=== PATIENT | female | born 1970 | race Caucasian/White ===

== ENCOUNTER 2017-12-02 06:49 | Day surgery (SDC) | payer BC, SELFPAY ==
[2017-12-02] VITALS (7 sets, daily range): BP systolic 106–130; BP diastolic 74–95; PULSE 68–83; RESP 16–18; TEMP 36.1–36.8; O2SAT 97–100; BMI 34.2
[2017-12-02 07:43] LABS: Hematocrit 41.3 % (37-47); Hemoglobin 13.7 g/dl (12.0-15.0); Mean Corp Hgb Conc 33.2 g/gl (32-36); Mean Corpuscular Hgb 28.2 pg (27.0-32.0); Mean Platelet Vol. 10.5 fl (6.2-12.0); Platelet Count 207 K/mm3 (150-450); RBC Distribution Width CV 13.3 % (11.6-14.6); RBC Distribution Width SD 41.2 fl (35.1-43.9); Red Blood Count 4.86 M/mm3 (4.2-5.4); White Blood Count 7.7 K/mm3 (4.4-11.0)
[2017-12-02 07:46] LABS: Scan Indicated on CBC? Y/N NO
--- NOTE | 2017-12-02 09:03 | PCM.OP.BLANK ---
Problem List (1) Abnormal uterine bleeding (AUB) Status: Acute Operative Report Date of Procedure: 12/02/17 Surgeon: Dr. 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 Bladder was drained prior to the start of the procedure with 100cc urine- At this time the weighted speculum was placed the posterior fornix of the vagina then a single-tooth tenaculum was used to grasp the anterior lip of the cervix. At this time the uterus was sounded to approximately 7 cm the endocervical canal sounded to 3cm. Next cervix was dilated in incremental fashion. Once adequate dilatation was achieved the hysteroscope was inserted using normal saline as distention medium. On hysteroscopy no abnormalities appreciated- appeared to have narrow cavity with moderate amount of endometrial tissue. At this time the Andreina device was opened. The Andreina was set at 4cm. The device was activated. Prior to activation the field test was performed and cavity was intact. The device was then fired and activated for 120 seconds. Once the 120 seconds was completed the device was removed intact and the tenaculum was removed. Good hemostasis was appreciated. Weighted speculum was removed. Vaginal sweep was performed is negative. There were no complications. Anticipated normal postoperative course for this patient. Instrument and lap count were correct ?2. vaginal sweep negative.
--- NOTE | 2017-12-02 09:06 | PCM.DC.D&C ---
Discharge Diet: No Restrictions Discharge Activity: Return to Normal Activity, May Shower, May Take a Tub Bath - in 2 weeks. Allergies/Adverse Reactions: Allergies No Known Allergies Allergy (Verified 11/25/17 10:22) Medications to take at Discharge Hydrochlorothiazide [Hctz] 25 mg PO DAILY 11/25/17 Lisinopril [Prinivil] 10 mg PO DAILY 11/25/17 Multivitamin [Multiple Vitamins] 1 each PO DAILY 11/25/17 Albuterol IH (ProAir) [Proair Hfa (SP)Vent Pts] 1 - 2 puff INHALATION Q4H PRN PRN 12/02/17 Primary Care Physician: Josesito Maldonado MD [Primary Care Provider] - Test Results: Test results from this visit will be discussed in further detail at your follow-up appointment, if applicable. Please Follow Up With: Mary Carreno MD When: as scheduled
[2017-12-02] MEDS: HYDROcodone Bitartrate/Apap 5/325 Tablet PO (10:12)
== END 2017-12-02 10:37 | disposition home or self-care (01) ==
LOC: SDC 06:50 → AC 06:52
PROVIDERS: Family Provider Family Medicine; PCP Family Medicine; Visit Provider Obstetrics & Gynecology
PROC: 0U5B8ZZ Destruction of Endometrium, Via Natural or Artificial Opening Endoscopic (ICD-10-PCS; CPT 58558; principal; 2017-12-02 08:00)
DX: N93.9 Abnormal uterine and vaginal bleeding, unspecified (principal); I10 Essential (primary) hypertension; Z79.899 Other long term (current) drug therapy; Z87.891 Personal history of nicotine dependence; E66.9 Obesity, unspecified; Z68.34 Body mass index [BMI] 34.0-34.9, adult; Z71.3 Dietary counseling and surveillance
CPT/HCPCS: 58563; 36415; 85027; J7120; J2405

== ENCOUNTER 2020-03-02 22:08 | Emergency (ER) | payer BC, SELFPAY ==
[2020-03-02 22:08] VITALS: BP 160/104; PULSE 122; RESP 18; TEMP 36.2; O2SAT 98; BMI 35.0
--- NOTE | 2020-03-02 22:21 | ED.DCSUM_ITS ---
- ER Visit Summary Date of Service: 03/02/20 Chief Complaint: Cough, weakness, decreased appetite and mild shortness of breath. History of Present Illness: The patient is a 49 F past medical history of hypertension. Prior C-sections. Patient states she is had a 5-day history of cough, body aches fever that has since resolved mild nausea but no vomiting or diarrhea. And generalized weakness and mild shortness of breath. She denies any history of DVT or PE. No cardiac history. Her was recently tested for Covid and his test was negative. She denies any leg pain, swelling or hemoptysis. No recent travel, surgery or immobilization. Physical Examination: Middle-aged female no acute distress vital signs are stable. Her pulse ox is 98% on room air no signs of hypoxia. HEENT exam unremarkable. Moist mucous membranes. Posterior pharynx normal. No trouble swallowing. Neck nontender no lymphadenopathy. No JVD. Lungs clear to auscultation bilaterally. Heart regular rhythm rate about 105 no murmur. Abdomen soft nontender. Patient is moving all 4 extremities. Neurovascularly intact. Calves nontender without edema. Back nontender. Neurologically she is awake and alert with no focal motor deficits. Test Results: Rapid Covid antigen is positive. Portable 1 view chest x-ray interpreted by myself shows what could be a right lower lobe early infiltrate consistent with Covid. Cardiac silhouette mediastinum and bony structures are unremarkable. Radiologist also read the film and agrees. Emergency Department Course and Treatment: Clinically the patient has COVID-19. Treatment Plan: Repeat exam no change. Patient be started on oral Decadron first dose given in the ER. Decadron daily 6 mg for 5 more days. Follow-up with your doctor if feeling worse or return to the emergency department. Quarantine. Disposition: Discharge Impression: Acute Covid pneumonitis This note was generated with [employer] dictation software. It may contain incorrect words, spelling, and punctuation that were not noted in review of the chart prior to signing ED Disposition - Plan for ED Patient: Referrals: Josesito Maldonado MD [Primary Care Provider] -
--- NOTE | 2020-03-02 22:35 | RAD_ITS ---
STUDY: X-RAY CHEST REASON FOR EXAM: Female, 49 years old. COMPLAINS OF SOB, COUGH, BODY ACHES, SORE THROAT, FATIGUE FOR PAST 5 DAYS. TECHNIQUE: Single AP portable view of the chest. COMPARISON: None. FINDINGS: There is mild airspace disease overlying the right lower lobe. There is no demonstrated pleural abnormality. Normal size heart. Normal mediastinum and micah. Normal visualized pulmonary arteries. Normal visualized aortic arch and descending thoracic aorta. Normal visualized thoracic spine. Normal visualized ribs, clavicles, and shoulders. There is no demonstrated abnormality of the visualized soft tissue structures of the upper abdomen. RAD/Chest 1 View (Portable) IMPRESSION: Findings concerning for early infiltrate overlying the right lower lobe, clinically correlate. Electronically Signed: Harman Robertson DO at 22:52 EST , Service support ,
--- NOTE | 2020-03-02 23:12 | ED.DEP ---
ED Disposition - Plan for ED Patient: Instructions: Coronavirus Disease 2019 (COVID-19): Overview Prescriptions: Dexamethasone [Decadron] 6 mg PO DAILY 5 Days tab Prescription Printed Referrals: Josesito Maldonado MD [Primary Care Provider] - 1 Week if not improving Additional Instructions: Your Covid test was positive. Your chest x-ray had early changes consistent with Covid. You will be started on Decadron which is a steroid 1 pill a day for 5 more days. This should decrease inflammation and help with your breathing. Return emergency department if you are feeling a lot worse specifically if you are a lot more short of breath. Otherwise follow-up with your doctor if not improving. Plenty of fluids and rest. Tylenol for fever and body aches.
[2020-03-02] MEDS: dexAMETHasone 4 MG Tablet 6 MG PO (23:28)
[2020-03-02 23:29] VITALS: BP 139/96; PULSE 100; RESP 18; O2SAT 96
== END 2020-03-03 00:02 | disposition home or self-care (01) ==
LOC: ED 22:50
PROVIDERS: Emergency Provider Emergency Medicine; PCP Family Medicine
DX: U07.1 COVID-19 (principal); J12.89 Other viral pneumonia; I10 Essential (primary) hypertension; Z79.899 Other long term (current) drug therapy
CPT/HCPCS: 71045; 87426; 99283

== ENCOUNTER 2023-01-05 16:14 | Emergency (ER) | payer BC, SELFPAY ==
[2023-01-05 16:16] VITALS: BP 177/113; PULSE 92; RESP 16; TEMP 36.1; O2SAT 100; BMI 30.5
[2023-01-05 17:30] VITALS: BP 156/107; PULSE 74; RESP 18; O2SAT 97
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
[2023-01-05 19:47] VITALS: BP 182/100; PULSE 71; RESP 15; O2SAT 100
[2023-01-05] MEDS: HYDROcodone Bitartrate/Apap 5/325 Tablet PO (20:15)
[2023-01-05 20:17] VITALS: BP 182/100; PULSE 71; RESP 15; O2SAT 100
== END 2023-01-05 20:19 | disposition home or self-care (01) ==
PROVIDERS: Emergency Provider Emergency Medicine; PCP Family Medicine; Visit Provider Emergency Medicine
DX: S20.20XA Contusion of thorax, unspecified, initial encounter (principal); Z79.899 Other long term (current) drug therapy; V49.40XA Driver injured in collision with unspecified motor vehicles in traffic accident, initial encounter
CPT/HCPCS: 70450; 71046; 72125; 99282

== ENCOUNTER 2023-02-20 07:42 | Emergency (ER) | payer BC, SELFPAY ==
[2023-02-20 07:42] VITALS: BP 154/93; PULSE 93; RESP 18; TEMP 36.4; O2SAT 100; BMI 30.8
--- NOTE | 2023-02-20 07:51 | EDS_ITS ---
HPI History of Present Illness Chief Complaint: Nosebleed Informant: patient Narrative Narrative: Patient presents with right-sided nosebleed. She states she started this couple hours ago. She was sleeping. She does not know if she hit her bumped or scraped her nose. She has not been congested or blowing her nose excessively recently. She is not on any blood thinners. She does not take aspirin or nonsteroidals. She states she has had nosebleeds off and on but they are not a regular part of her life. She states the bleeding has been completely off the right side only. No other areas of bleeding or bruising recently. She does not feel lightheaded. [facility] Medical History Chronic back pain Home Medications hydrochlorothiazide 25 mg tablet 25 mg PO DAILY BP 11/25/17 [History Last Taken Unknown] gabapentin 100 mg capsule mg 01/05/23 [History Last Taken Unknown] hydrocodone-acetaminophen 5-325mg 5mg-325mg 1 tab PO Q6H PRN PRN Pain 3 days #10 TABLETS 01/05/23 [Rx Last Taken Unknown] losartan 100 mg tablet mg 01/05/23 [History Last Taken Unknown] sertraline 100 mg tablet mg 01/05/23 [History Last Taken Unknown] Allergy/AdvReac Type Severity Reaction Status Date / Time No Known Allergies Allergy Verified 02/20/23 07:44 Social History Smoking Status: Never smoker [facility] ED Constitutional Constitutional ED: Denies chills or fever(s) Eyes Eyes: Denies change in vision ENT ENT ED: Reports other Details: See history of present illness. Cardiovascular Cardiovascular: Denies chest pain, palpitations or racing heartbeat Respiratory/Chest Respiratory/Chest: Denies cough or dyspnea Gastrointestinal Gastrointestinal: Denies abdominal pain, nausea or vomiting Genitourinary Genitourinary ED: Denies hematuria Musculoskeletal Musculoskeletal: Denies arthralgias Integumentary Denies rash Hematologic/Lymphatic Hematologic/Lymphatic: Denies easy bleeding or easy bruising Allergic/Immunologic Allergic/Immunologic ED: Denies urticaria EXAM Physical Exam Narrative Exam Narrative: General: Patient awake alert good informant. She has a nasal clamp on the front of her nose and some tissues held there. No active bleeding coming out right now. HEENT: Clamp and tissues as above. No facial tenderness. Oropharynx is normal. I do not see any posterior pharyngeal clot at this time. No intraoral petechiae. Eyes: No conjunctival pallor is noted. Neck is supple. Heart is regular. I hear no murmur. Lungs are clear. Saturations are normal 100% on room air showing no hypoxia. Abdomen soft nontender and has normal bowel sounds. Extremities show no pallor. No tenderness. Skin: No diaphoresis. No pallor. No abnormal bruising. I see no petechiae. Const Vital Signs: 02/20/23 07:42 Temperature 97.6 F L Temperature Source Temporal Pulse Rate 93 Respiratory Rate 18 Blood Pressure 154/93 H Blood Pressure Mean 113 Pulse Ox 100 Oxygen Delivery Method Room Air MDM MDM MDM Narrative Medical decision making narrative: Procedure: Management of epistaxis: Clamp was removed from the nose. We sprayed 2 sprays of aspirin in each nostril. We let this rest. I went back. Left is completely clear. Right has small abrasion in the anterior Kiesselbach's plexus. But the vessels around it are not distended or tortuous. I do not think cauterizing this area would be the best. I did then use spray thrombin in both naris. We have let the patient rest for over an hour. She has gotten up walked around. There is no bleeding at all. We did discuss the option of placing packing but she would prefer to try to avoid this. I explained that if it starts bleeding again she may need to return and she may need further procedures. She is comfortable with this plan. Discharge Plan Triage Chief Complaint: Nosebleed ED Provider: Srinath Hill Dx/Rx/DC Orders Clinical Impression: Acute anterior epistaxis Instructions: ED Epistaxis (Adult) Prescriptions: No Action hydrochlorothiazide 25 MG tablet 25 mg PO DAILY sertraline 100 mg tablet Patient Comments: Take ONE-HALF tab once a day orally for one week then 1 (ONE) tab once a day gabapentin 100 mg capsule Patient Comments: Take 2 capsules by mouth three times daily as needed for up to 30 days. losartan 100 mg tablet Patient Comments: Take 1 tablet by mouth once daily. hydrocodone-acetaminophen 5-325 mg tablet 1 tab PO Q6H PRN PRN (Reason: Pain) 3 Days Qty: 10 0RF Primary Care Provider: Josesito Maldonado Referrals: Bogdan Jeter MD [Med Staff - Active Staff] - 3-5 Days Josesito Maldonado MD [Primary Care Provider] - Activity Restrictions/Additional Instructions: And cool-mist humidifier to the room that you are staying in. Avoid pushing, pulling, bending, lifting and avoid hot foods and beverages for several days. Avoid blowing scratching or bumping nose. Disposition Disposition: Home, Self Care
[2023-02-20] MEDS: Oxymetazoline 0.05% 1 SPRAY SPRAY.BTL 2 SPRAY NASAL (08:03)
[2023-02-20] MEDS: Thrombin 5,000 IU Kit (PSA) 5,000 IU Vial 5000 IU TOPICAL (08:06)
[2023-02-20 10:27] VITALS: BP 136/87; PULSE 71; RESP 18; O2SAT 99
== END 2023-02-20 10:28 | disposition home or self-care (01) ==
PROVIDERS: Emergency Provider Emergency Medicine; PCP Family Medicine; Visit Provider Emergency Medicine
DX: R04.0 Epistaxis (principal)
CPT/HCPCS: 30901; 99282

== ENCOUNTER 2023-10-18 00:52 | Emergency (ER) | payer BC, SELFPAY ==
[2023-10-18 00:53] VITALS: BP 151/89; PULSE 105; RESP 16; TEMP 36.9; O2SAT 99; BMI 31.4
[2023-10-18 01:28] LABS: Mucous, Urine 0 SEEN /hpf (<or=2+); Red Blood Cells-Urine 0 SEEN /hpf (0-5); Squamous Epithelial Cells - UA 0 SEEN /hpf (5-10); White Blood Cells 0 SEEN /hpf (0-5)
[2023-10-18 01:29] LABS: Absolute Lymphocyte Count 1.37 X10^3/uL (0.83-4.51); Absolute Neutrophil Count 9.9 X10^3/uL (2.0-7.7); Basophil# 0.04 X10^3/uL; Basophil% 0.3 % (0-1); Eosinophil# 0.04 X10^3/uL; Eosinophils% 0.3 % (0-5); Hematocrit 41.9 % (37-47); Hemoglobin 14.3 g/dL (12.0-15.0); Lymphocyte # 1.37 X10^3/ul (0.83-4.51); Lymphocyte % 11.2 % (19-41); Mean Corp Hgb Conc 34.1 g/dL (32-36); Mean Corpuscular Hgb 28.9 pg (27.0-32.0); Mean Corpuscular Volume 84.8 fL (81-99); Mean Platelet Vol. 11.1 fl (6.2-12.0); Monocyte# 0.81 X10^3/uL; Monocyte% 6.6 % (0-10); NRBC Flagged by Analyzer 0 % (0-5); Neutrophil # 9.93 X10^3/uL (2.7-7.7); Neutrophil % 81.4 % (47-70); Platelet Count 210 K/mm3 (150-450); RBC Distribution Width CV 12.8 % (11.6-14.6); RBC Distribution Width SD 39.5 fl (35.1-43.9); Red Blood Count 4.94 M/mm3 (4.2-5.4); White Blood Count 12.2 K/mm3 (4.4-11.0)
[2023-10-18 01:34] LABS: Color, Urine Yellow (Yellow); Glucose, Dipstick Normal (Normal); Ketone-Dipstick Negative (Negative); Leukocyte Esterase-Dipstick Negative /ul (Negative); Nitrite-Dipstick Negative (Negative); Occult Blood-Urine Negative /ul (Negative); Protein-Dipstick 30 mg/dl (Negative); Specific Gravity, Urine 1.025 (1.002-1.030); Urine Bilirubin Dipstick Negative (Negative); Urine Clarity Clear (Clear); Urine Urobilinogen Normal (Normal)
[2023-10-18 01:43] LABS: Bacteria 1+ /hpf (None Seen)
[2023-10-18 01:46] LABS: Anion Gap 7 (5-15); BUN 14 mg/dL (7-18); BUN/Creat Ratio 16.6 RATIO (10-20); Calcium,Total 9.2 mg/dL (8.5-10.1); Chloride 102 mmol/L (98-107); Creatinine, Serum 0.84 mg/dL (0.55-1.02); EST Glomerular Filtration Rate 74 mL/min (>60); Est Glom Filt Rate - Afr Amer 90 mL/min (>60); Estimated Creatinine Clearance 65.25 ml/min; Glucose 112 mg/dL (74-106); Potassium 3.3 mmol/L (3.5-5.1); Sodium Level 137 mmol/L (136-145)
--- NOTE | 2023-10-18 02:32 | CT_ITS ---
We are attempting to reach an attending provider to discuss findings. An addendum with communication details will be sent when the communication is complete. EXAM: CT ABDOMEN AND PELVIS WITHOUT INTRAVENOUS CONTRAST CLINICAL INDICATION: Abdominal pain TECHNIQUE: Helically acquired images were obtained of the abdomen and pelvis without intravenous contrast. This CT exam was performed using one or more of the following dose reduction techniques: automated exposure control, adjustment of the mA and/or kV according to patient size, and/or use of iterative reconstruction technique. RADIATION DOSE: CTDIvol = 9.95 mGy, DLP = 452.35 mGy-cm. COMPARISON: August 29, 2009 FINDINGS: LOWER THORAX: Unremarkable. Lung bases are clear. No cardiomegaly. No significant pericardial effusion. ABDOMEN: LIVER: Unremarkable. Homogeneous. GALLBLADDER AND BILE DUCTS: Unremarkable. No calcified gallstones. No gallbladder distention or wall edema. No intra- or extrahepatic biliary ductal dilation. PANCREAS: Unremarkable. No focal cystic mass. SPLEEN: Unremarkable. Normal size without focal cystic or solid mass. ADRENALS: Unremarkable. No nodules. KIDNEYS AND URETERS: Unremarkable. Normal renal size and position. No hydronephrosis. STOMACH AND BOWEL: Minimal gas and fluid in the stomach. Mild gas and fluid in right colon, mild scattered gas descending colon, almost collapsed segments of rectosigmoid. Maximum small bowel caliber roughly 2.2 cm. PELVIS: APPENDIX: Right lobe of liver is 17.6 cm, upper normal, it was 60.8 cm on prior exam. Small normal appendix suspected on coronal images. BLADDER: Unremarkable. REPRODUCTIVE: Unremarkable as visualized. No mass. ABDOMEN and PELVIS: INTRAPERITONEAL SPACE: Trace fluid deep in the right pelvis. BONES/JOINTS: Unremarkable. No suspicious lytic or blastic abnormality. SOFT TISSUES: There is mild hazy apparent edema in the root of the mesentery and extending adjacent to multiple mildly thick-walled mid small bowel loops. No discrete abdominal or pelvic wall hernia. VASCULATURE: Slight aortoiliac atherosclerotic calcification. No aneurysm or evidence of dissection. LYMPH NODES: Multiple visible mesenteric lymph nodes, several were present on prior exam. CT/Abdomen/Pelvis without Cont IMPRESSION: 1. Fairly large zone of new hazy tissue stranding in the small bowel mesentery, most pronounced in the central and lower abdomen. Numerous small mesenteric lymph nodes, with some mildly larger or more apparent lymph nodes in the lower abdomen mesentery in the zone of maximum soft tissue stranding. 2. No discrete mass. 3. Slight fluid in the right pelvis. 4. Mildly thick-walled appearance of multiple small bowel loops. 5. Consider CTA with delayed imaging if there is clinical concern for mesenteric ischemia due to arterial or venous occlusion. 6. Correlate with evidence of enteritis. Electronically Signed: Winnie Jarrett MD at 3:36 EDT ,
--- NOTE | 2023-10-18 02:33 | EDS_ITS ---
HPI History of Present Illness Chief Complaint: Flank Pain Informant: patient Onset/Context/Timing Onset: Today Context: Gradual Onset Timing: Continuous Quality: Aching, cramping Location: Left flank Worsened by: Nothing Relieved by: Nothing Narrative Narrative: Patient presents with flank pain that began today. Patient states her pain is mainly over the left flank area. Patient describes the pain as aching and cramping. Patient states it has been constant. Patient states it is gradually gotten worse. Patient states nothing makes it better and nothing makes it worse. Patient admits to some nausea but denies any vomiting. Patient denies any dysuria or hematuria. Patient also complains of pain over the epigastric area which radiates into her upper abdomen under her ribs bilaterally. Patient admits to some pain in her back. Patient also admits to headache and neck pain. [facility] Medical History Chronic back pain Home Medications ?Medication ?Instructions ?Recorded ?Last Taken ?Type hydrochlorothiazide 25 mg tablet 25 mg PO DAILY BP 11/25/17 Unknown History gabapentin 100 mg capsule 100 mg PO TID 01/05/23 Unknown History losartan 100 mg tablet 100 mg PO DAILY 01/05/23 Unknown History sertraline 100 mg tablet 100 mg PO DAILY 01/05/23 Unknown History ciprofloxacin HCl 500 mg tablet 500 mg PO BID #20 TABLETS 10/18/23 Unknown Rx conj estrogen-medroxyprogesterone 1 tab PO DAILY 10/18/23 Unknown History 0.3 mg-1.5 mg tablet (Prempro) estradiol 1 mg tablet 1 mg PO DAILY 10/18/23 Unknown History hydrocodone-acetaminophen 5-325mg 1 tab PO Q6H PRN PRN Pain 3 days 10/18/23 Unknown Rx 5mg-325mg #10 TABLETS metronidazole 500 mg tablet 500 mg PO Q6H #40 tabs 10/18/23 Unknown Rx Allergy/AdvReac Type Severity Reaction Status Date / Time No Known Allergies Allergy Verified 02/20/23 07:44 Surgical History (Updated 10/18/23 @ 02:[address] Joe Ramirez, ) Hx of section Social History Smoking Status: Never smoker ROS ROS ED Constitutional Constitutional ED: Denies chills or fever(s) Eyes Eyes: Denies blurry vision or change in vision ENT ENT ED: Denies rhinorrhea or sore throat Cardiovascular Cardiovascular: Denies chest pain or palpitations Respiratory/Chest Respiratory/Chest: Denies cough or dyspnea Gastrointestinal Gastrointestinal: Reports abdominal pain and nausea; Denies vomiting Genitourinary Genitourinary ED: Denies dysuria or hematuria Musculoskeletal Musculoskeletal: Reports back pain and neck pain Integumentary Denies abscess or rash Neurologic Neurologic: Reports headache(s); Denies weakness Allergic/Immunologic Allergic/Immunologic ED: Denies mouth swelling or urticaria EXAM Physical Exam Const Vital Signs: 10/18/23 00:53 10/18/23 03:00 10/18/23 03:53 Temperature 98.5 F Temperature Source Oral Pulse Rate 105 H 87 97 Respiratory Rate 16 18 18 Blood Pressure 151/89 H 120/75 163/85 H Blood Pressure Mean 109 90 111 Pulse Ox 99 96 97 Oxygen Delivery Method Room Air Room Air Positive well nourished and well developed General Appearance ED: well developed and NAD HEENT Reports moist mucous membranes Neck supple and no JVD Resp normal respiratory effort and clear to auscultation bilaterally Cardio regular rate and regular rhythm GI non-distended Palpation: soft and tender epigastric, LUQ and RUQ; Negative for guarding or rebound tenderness present Back/Spine General Back: CVA tenderness left Extremity normal to inspection General Extremety ED: Negative for edema or tenderness General Extremity: Negative for edema Neuro oriented x3, CN's II-XII intact bilaterally and no sensory deficits noted Sensorium / Orientation: alert Motor Exam: strength 5/5 throughout Psych mental status grossly normal MDM MDM MDM Narrative Medical decision making narrative: Differential diagnosis includes ureteral calculus, pyelonephritis, pancreatitis, cholecystitis, cholelithiasis, colitis, and gastroenteritis. CBC will be obtained to assess for leukocytosis and anemia. Basic metabolic profile will be obtained to assess for electrolyte abnormality and renal function. Hepatic profile will be obtained to assess for hepatic function. Lipase will be obtained to assess for pancreatitis. Urinalysis will be obtained to assess for urinary tract infection and hematuria. CT scan of the abdomen pelvis will be obtained to assess for ureteral calculus, pyelonephritis, and pancreatitis. Lactate will be obtained to assess for bowel ischemia. Lab Data Attestation: I reviewed the patient's lab results. Lab results narrative: CBC was reviewed. There is a mild leukocytosis of 12.2. Remainder is within normal limits. Basic metabolic profile was reviewed. Potassium was slightly low at 3.3. Glucose was slightly elevated at 112. Urinalysis was reviewed. There is no evidence of urinary tract infection or hematuria. Lactic acid was reviewed and was normal at 0.8. Labs: Laboratory Results - last 24 hr 10/18/23 10/18/23 01:20 04:50 WBC 12.2 H RBC 4.94 Hgb 14.3 Hct 41.9 MCV 84.8 MCH 28.9 MCHC 34.1 RDW Std Deviation 39.5 RDW Coeff of Ayah 12.8 Plt Count 210 MPV 11.1 Immature Gran % (Auto) 0.200 Neut % (Auto) 81.4 H Lymph % (Auto) 11.2 L Cavalier % (Auto) 6.6 Eos % (Auto) 0.3 Baso % (Auto) 0.3 Absolute Neuts (auto) 9.9 H Absolute Lymphs (auto) 1.37 Nucleated RBC % 0 Sodium 137 Potassium 3.3 L Chloride 102 Carbon Dioxide 28.0 Anion Gap 7 BUN 14 Creatinine 0.84 Estim Creat Clear Calc 65.25 Est GFR (MDRD) Af Amer 90 Est GFR (MDRD) Non-Af 74 BUN/Creatinine Ratio 16.6 Glucose 112 H Lactic Acid 0.8 Calcium 9.2 Total Bilirubin 0.30 Direct Bilirubin 0.06 AST 15 ALT 22 Alkaline Phosphatase 87 Total Protein 7.3 Albumin 3.5 Globulin 3.8 Lipase 53 Urine Color Yellow Urine Clarity Clear Urine pH 6.0 Ur Specific [place] 1.025 Urine Protein 30 H Urine Glucose (UA) Normal Urine Ketones Negative Urine Occult Blood Negative Urine Nitrite Negative Urine Bilirubin Negative Urine Urobilinogen Normal Ur Leukocyte Esterase Negative Urine RBC 0 SEEN Urine WBC 0 SEEN Ur Squamous Epith Cells 0 SEEN Urine Bacteria 1+ Urine Mucus 0 SEEN Radiography Diagnostic Testing: Clinical Impression(s) from Imaging Studies Abdomen/Pelvis CT 10/18/23 02:32 IMPRESSION: 1. Fairly large zone of new hazy tissue stranding in the small bowel mesentery, most pronounced in the central and lower abdomen. Numerous small mesenteric lymph nodes, with some mildly larger or more apparent lymph nodes in the lower abdomen mesentery in the zone of maximum soft tissue stranding. 2. No discrete mass. 3. Slight fluid in the right pelvis. 4. Mildly thick-walled appearance of multiple small bowel loops. 5. Consider CTA with delayed imaging if there is clinical concern for mesenteric ischemia due to arterial or venous occlusion. 6. Correlate with evidence of enteritis. Electronically Signed: Winnie Jarrett MD at 3:36 EDT Reading Location ID and State: [facility] / [place] Tel , Service support , ADDENDUM: 10/18/23 0347 IMPRESSION: 1. Fairly large zone of new hazy tissue stranding in the small bowel mesentery, most pronounced in the central and lower abdomen. Numerous small mesenteric lymph nodes, with some mildly larger or more apparent lymph nodes in the lower abdomen mesentery in the zone of maximum soft tissue stranding. 2. No discrete mass. 3. Slight fluid in the right pelvis. 4. Mildly thick-walled appearance of multiple small bowel loops. 5. Consider CTA with delayed imaging if there is clinical concern for mesenteric ischemia due to arterial or venous occlusion. 6. Correlate with evidence of enteritis. N.B. : The above Results were Read Back by Winnie Jarrett MD to Joe Ramirez DO, and understanding confirmed on 10/18/2023 03:40:17 (ET). Electronically Signed: Winnie Jarrett MD at 3:36 EDT Reading Location ID and State: [facility] / [place] Tel , Service support , Abdomen/Pelvis CTA 10/18/23 03:43 IMPRESSION: 1. Findings are most likely due to marked enterocolitis. Especially intense enhancement and moderately thick-walled appearance of multiple small bowel loops in the left mid to lower abdomen. No large vessel arterial or venous occlusion. 2. Hazy associated mesenteric opacity, likely mesenteric edema. 3. Mild scattered free fluid. Electronically Signed: Winnie Jarrett MD at 4:59 EDT , ADDENDUM: 10/18/23 0513 IMPRESSION: 1. Findings are most likely due to marked enterocolitis. Especially intense enhancement and moderately thick-walled appearance of multiple small bowel loops in the left mid to lower abdomen. No large vessel arterial or venous occlusion. 2. Hazy associated mesenteric opacity, likely mesenteric edema. 3. Mild scattered free fluid. N.B. : The above Results were Read Back by Winnie Jarrett MD to Joe Ramirez DO, and understanding confirmed on 10/18/2023 05:06:18 (ET). Electronically Signed: Winnie Jarrett MD at 4:59 EDT , CT scan of the abdomen pelvis was obtained. There is a fairly large zone of hazy tissue stranding in the small bowel mesentery. There is mesenteric lymphadenopathy. There is mildly thick-walled appearance of multiple small bowel loops. There is no evidence of obstruction. This was interpreted by the radiologist and was also independently reviewed by myself. Because of the radiologist recommendation, CTA of the abdomen pelvis was obtained. Findings are consistent with marked enterocolitis. There is no mesenteric ischemia noted. There is no large vessel occlusion noted. This was interpreted by the radiologist was also independently reviewed by myself. Treatment and Re-Evaluation :: Patient was given IV fluids, morphine, and Zofran. Patient was still having pain on reevaluation. Patient was given a dose of Dilaudid. Patient was advised of her findings. Patient was given a dose of Cipro and Flagyl here. Patient was given prescriptions for Cipro and Flagyl. Patient was also given a prescription for a short course of [place]. Patient was instructed to follow-up with her primary care physician in 5 to 7 days. Patient was also given a referral to Dr. Mcclellan for further evaluation. Patient understood and was agreeable with the plan. All questions were answered. Discharge Plan Triage Chief Complaint: Flank Pain ED Provider: Joe Ramirez Dx/Rx/DC Orders Clinical Impression: Enterocolitis, Abdominal pain Instructions: ED Understanding Colitis Prescriptions: New hydrocodone-acetaminophen 5-325 mg tablet 1 tab PO Q6H PRN PRN (Reason: Pain) 3 Days Qty: 10 0RF metronidazole 500 mg tablet 500 mg PO Q6H Qty: 40 0RF ciprofloxacin HCl 500 mg tablet 500 mg PO BID Qty: 20 0RF No Action hydrochlorothiazide 25 MG tablet 25 mg PO DAILY sertraline 100 mg tablet 100 mg PO DAILY Patient Comments: Take ONE-HALF tab once a day orally for one week then 1 (ONE) tab once a day gabapentin 100 mg capsule 100 mg PO TID Patient Comments: Take 2 capsules by mouth three times daily as needed for up to 30 days. losartan 100 mg tablet 100 mg PO DAILY Patient Comments: Take 1 tablet by mouth once daily. estradiol 1 mg tablet 1 mg PO DAILY Prempro 0.3-1.5 mg tablet 1 tab PO DAILY Primary Care Provider: Josesito Maldonado Referrals: FriendJax DO [Med Staff - Active Staff] - 5-7 Days Josesito Maldonado MD [Primary Care Provider] - 3-5 Days Print Language: [place] Islander Disposition Disposition: Home, Self Care
[2023-10-18] MEDS: Ondansetron 4 MG/2 ML Vial IV (02:39)
[2023-10-18] MEDS: 0.9% Normal Saline (1000mL) 1,000 ML 1000 ML IV (02:39)
[2023-10-18] MEDS: Morphine 4 MG/ML Syringe IV (02:39)
[2023-10-18 03:00] VITALS: BP 120/75; PULSE 87; RESP 18; O2SAT 96
[2023-10-18 03:01] LABS: AST(SGOT) 15 U/L (15-37); Alanine Aminotransfer ALT/SGPT 22 U/L (13-56); Albumin, Serum 3.5 g/dL (3.2-5.0); Alkaline Phosphatase 87 U/L (45-117); Bilirubin, Direct 0.06 mg/dL (0.00-0.30); Globulin 3.8 g/dL (2.2-4.2); Lipase 53 U/L (13-75); Protein, Total 7.3 g/dL (6.4-8.2)
--- NOTE | 2023-10-18 03:43 | CT_ITS ---
We are attempting to reach an attending provider to discuss findings. An addendum with communication details will be sent when the communication is complete. EXAM: CT ANGIOGRAPHY ABDOMEN AND PELVIS WITHOUT AND WITH INTRAVENOUS CONTRAST CLINICAL INDICATION: PAIN TECHNIQUE: Helically acquired angiography images were obtained of the abdomen and pelvis without and with intravenous contrast. This CT exam was performed using one or more of the following dose reduction techniques: automated exposure control, adjustment of the mA and/or kV according to patient size, and/or use of iterative reconstruction technique. MIP reconstructed images were created and reviewed. CONTRAST: IV 100mL Isovue-[id number] RADIATION DOSE: CTDIvol = 18.97 mGy, DLP = 1685.86 mGy-cm COMPARISON: Prior unenhanced study August 29, 2009 there was a small stone in the right UVJ in 2009. FINDINGS: VASCULATURE: AORTA: No acute findings. Normal caliber abdominal aorta. No dissection. CELIAC TRUNK AND MESENTERIC ARTERIES: No acute findings. No occlusion or significant stenosis. No dissection. RENAL ARTERIES: No acute findings. No occlusion or significant stenosis. No dissection. ILIAC ARTERIES: No acute findings. No occlusion or significant stenosis. No dissection. PORTAL VEINS: Unremarkable as visualized. No large vessel occlusion. Patent major mesenteric and portal vessels. LOWER THORAX: Unremarkable. Lung bases are clear. No cardiomegaly. No significant pericardial effusion. ABDOMEN: LIVER: See above. GALLBLADDER AND BILE DUCTS: Unremarkable. No calcified gallstones. No gallbladder distention or wall edema. No intra- or extrahepatic biliary ductal dilation. PANCREAS: Unremarkable. No focal cystic or solid mass. SPLEEN: Unremarkable. Normal size without focal cystic or solid mass. ADRENALS: Unremarkable. No nodules. KIDNEYS AND URETERS: Unremarkable. Normal renal size and position. No hydronephrosis. STOMACH AND BOWEL: Mild fluid and gas in the stomach. Mildly thick-walled appearance of the third part of duodenum, multiple jejunal loops, and moderately thick walled peripherally enhance appearance of multiple mid small bowel. Multiple loops of thick-walled small bowel left mid to lower abdomen, wall of about 3 mm. Multiple collapsed loops appear moderately thick walled the left upper to mid abdomen and lower midline abdomen. There is mild gas in terminal ileal loops. No evidence of a significant degree of obstruction. Maximum small bowel diameter roughly 2.4 cm. Mild fluid and gas in the cecum. Scattered minimal gas in much of the colon, no formed stool. Minimally thick-walled appearance of much of the colon with slight mucosal enhancement. PELVIS: APPENDIX: Small linear structure on coronal images 72-75 may be section of small appendix. No evidence of appendicitis. BLADDER: Moderately distended urinary bladder. REPRODUCTIVE: Unremarkable as visualized. No mass. ABDOMEN and PELVIS: INTRAPERITONEAL SPACE: Mild fluid in the right pelvis, trace fluid in the posterior pelvis. Large zone of hazy soft tissue stranding in the mesentery mid to lower abdomen again noted. No free air. BONES/JOINTS: Unremarkable. No suspicious lytic or blastic abnormality. SOFT TISSUES: Unremarkable. No discrete abdominal or pelvic wall hernia. LYMPH NODES: Unremarkable. No enlarged lymph nodes. CT/CTA Abd/Pelvis W/WO Contrast IMPRESSION: 1. Findings are most likely due to marked enterocolitis. Especially intense enhancement and moderately thick-walled appearance of multiple small bowel loops in the left mid to lower abdomen. No large vessel arterial or venous occlusion. 2. Hazy associated mesenteric opacity, likely mesenteric edema. 3. Mild scattered free fluid. Electronically Signed: Winnie Jarrett MD at 4:59 EDT ,
[2023-10-18] MEDS: HYDROmorphone 1 MG/ML Syringe 0.5 MG IV (03:50)
[2023-10-18 03:53] VITALS: BP 163/85; PULSE 97; RESP 18; O2SAT 97
[2023-10-18 05:00] VITALS: RESP 18
[2023-10-18 05:23] LABS: Lactic Acid 0.8 mmol/L (0.4-1.9)
[2023-10-18] MEDS: Ciprofloxacin 500 MG Tablet PO (05:33)
[2023-10-18] MEDS: metroNIDAZOLE 500 MG Tablet PO (05:33)
[2023-10-18 05:40] VITALS: BP 137/76; PULSE 92; RESP 16; TEMP 36.4; O2SAT 98
== END 2023-10-18 05:42 | disposition home or self-care (01) ==
PROVIDERS: Emergency Provider Emergency Medicine; PCP Family Medicine; Visit Provider Emergency Medicine
DX: K52.9 Noninfective gastroenteritis and colitis, unspecified (principal); R51.9 Headache, unspecified; R10.9 Unspecified abdominal pain
CPT/HCPCS: 74174; 74176; 80048; 80076; 81001; 83605; 83690; 85025; 96361; 96374; 96375; 99283; J7030; Q9967; A4216; J2405